=== PATIENT | female | born 1955 | race Caucasian/White ===

== ENCOUNTER → 2017-09-25 15:07 | Outpatient (CLI) | payer BC, SELFPAY ==
[2017-09-25 17:29] LABS: Microalbumin,Random Urine < 5.0 mg/L (NO RANGE EST.)
== END ==
PROVIDERS: Family Provider Family Medicine; PCP Family Medicine; Visit Provider Internal Medicine Nephrology
DX: E11.22 Type 2 diabetes mellitus with diabetic chronic kidney disease (principal); N18.9 Chronic kidney disease, unspecified
CPT/HCPCS: 82043; 82570

== ENCOUNTER → 2018-06-18 17:16 | Outpatient (CLI) | payer BC, SELFPAY ==
--- NOTE | 2018-06-18 17:30 | RAD_ITS ---
STUDY: X-RAY - LUMBAR SPINE REASON FOR EXAM: Female, 62 years old. Injury TECHNIQUE: 3 view(s) of the lumbar spine were obtained. COMPARISON: None FINDINGS: Normal lumbar lordosis. There is no substantial scoliosis. There is a minimal spondylolisthesis at L5-S1. Degenerative changes of the vertebral bodies with spurring at the endplates. Slightly narrow L5-S1 disc space with vacuum phenomena. The soft tissue structures are unremarkable. Calcified aorta. Moderate degenerative changes of the visualized lower thoracic levels. RAD/Lumbar Spine 2 or 3 Views IMPRESSION: Degenerative changes of the lumbar spine. Minimal spinal listhesis at L5-S1 with vacuum phenomenon. Electronically Signed: Tripp Clayton DO at 8:28 EST Tel [phone], Service support ,
== END ==
PROVIDERS: Family Provider Family Medicine; PCP Family Medicine; Referring Provider Anesthesiology Pain Medicine; Visit Provider Anesthesiology Pain Medicine
DX: M54.9 Dorsalgia, unspecified (principal); W19.XXXA Unspecified fall, initial encounter; Y93.9 Activity, unspecified; Y92.9 Unspecified place or not applicable; Y99.9 Unspecified external cause status
CPT/HCPCS: 72100

== ENCOUNTER → 2018-11-03 10:47 | Outpatient (CLI) | payer BC, SELFPAY ==
[2018-11-03 13:25] LABS: PTHIN 114.6 pg/mL (18.4-80.1)
[2018-11-03 13:29] LABS: Microalbumin,Random Urine 18.5 mg/L (NO RANGE EST.); Microalbumin:Creatinine Ratio 19.2 mg/g CRE (<30 mg/g CRE)
== END ==
PROVIDERS: Family Provider Family Medicine; PCP Family Medicine; Visit Provider Internal Medicine Nephrology
DX: E11.22 Type 2 diabetes mellitus with diabetic chronic kidney disease (principal); N18.3 Chronic kidney disease, stage 3 (moderate)
CPT/HCPCS: 36415; 82043; 82570; 83970

== ENCOUNTER → 2019-01-19 15:57 | Outpatient (CLI) | payer BC, SELFPAY ==
--- NOTE | 2019-01-19 16:07 | RAD_ITS ---
HISTORY: PAIN IN HER RIGHT HIP. NO KNOW INJURY. EXAM: AP pelvis and 2 views of the right hip. No comparisons. Findings: Bony alignment is normal. Joint spaces of the hips are mildly narrowed. SI joint arthritis is present. L5-S1 disc disease. Facet arthropathy. No fracture or dislocation. RAD/HIP, UNI W/ Pelvis 2-3 Views IMPRESSION: No fracture dislocation of the right hip. at 0322 Reported and signed by: Wang Horner MD Electronically Signed: Wang Horner MD at 3:21 EDT Tel , Service support ,
== END ==
PROVIDERS: Family Provider Family Medicine; PCP Family Medicine; Referring Provider Anesthesiology Pain Medicine; Visit Provider Anesthesiology Pain Medicine
DX: M25.551 Pain in right hip (principal)
CPT/HCPCS: 73502

== ENCOUNTER → 2020-02-03 09:59 | Outpatient (CLI) | payer MEDICARE, BC, SELFPAY ==
--- NOTE | 2020-02-03 10:10 | RAD_ITS ---
STUDY: X-RAY - LEFT KNEE REASON FOR EXAM: Female, 64 years old. BILAT KNEE PAIN, RT SIDE GREATER THAN LT SIDE. HX OLD FALL TECHNIQUE: 2 view(s) of the knee. COMPARISON: None. FINDINGS: The knee is intact and located. There is moderate decreased joint space and degenerative change in the lateral and medial compartments. Mineralization is normal. BMI severely elevated. Otherwise soft tissues are normal. RAD/Knee 1 or 2 Views IMPRESSION: 1. Moderate degenerative joint disease. 2. Severely elevated BMI. Electronically Signed: Christy Pierce, at 16:50 EDT Tel , Service support ,
--- NOTE | 2020-02-03 10:10 | RAD_ITS ---
STUDY: X-RAY - RIGHT KNEE REASON FOR EXAM: Female, 64 years old. Knee symptomatology TECHNIQUE: view(s) of the knee. COMPARISON: None. FINDINGS: Normal visualized distal femur. Normal visualized proximal tibia and fibula. Normal proximal tibiofibular articulation. There is mild degenerative change in the medial weightbearing compartment.. Normal patellofemoral articulation. BMI is severely elevated. RAD/Knee 1 or 2 Views IMPRESSION: 1. Mild medial compartment degenerative joint disease. 2. Severely elevated BMI. Bariatric specialty referral is advised. Electronically Signed: Christy Pierce, at 16:50 EDT Tel , Service support ,
== END ==
PROVIDERS: PCP Family Medicine; Referring Provider Anesthesiology Pain Medicine; Visit Provider Anesthesiology Pain Medicine
DX: M25.561 Pain in right knee (principal); M25.562 Pain in left knee
CPT/HCPCS: 73560

== ENCOUNTER → 2020-11-27 08:23 | Outpatient (CLI) | payer MEDICARE, BC, SELFPAY ==
[2020-05-22 09:27] VITALS: BMI 52.3
[2020-11-27 09:10] LABS: Protein, Urine (Random) 35.7 mg/dL (<11.9); Protein:Creat Ratio 492 mg/g CRE (0-200)
[2020-11-27 09:27] LABS: Albumin, Serum 3.4 g/dL (3.2-5.0); BUN 36 mg/dL (7-18); BUN/Creat Ratio 32.4 RATIO (10-20); Calcium,Total 9.3 mg/dL (8.5-10.1); Chloride 106 mmol/L (98-107); Creatinine, Serum 1.11 mg/dL (0.55-1.02); EST Glomerular Filtration Rate 52 mL/min (>60); Est Glom Filt Rate - Afr Amer 63 mL/min (>60); Glucose 129 mg/dL (74-106); Phosphorus 3.9 mg/dL (2.5-4.9); Potassium 4.6 mmol/L (3.5-5.1); Sodium Level 138 mmol/L (136-145)
[2020-11-27 09:34] LABS: PTHIN 110.6 pg/mL (18.4-80.1)
== END ==
PROVIDERS: PCP Family Medicine; Referring Provider Internal Medicine Nephrology; Visit Provider Internal Medicine Nephrology
DX: N18.30 Chronic kidney disease, stage 3 unspecified (principal)
CPT/HCPCS: 36415; 80069; 82570; 83970; 84156

== ENCOUNTER → 2021-12-25 | Outpatient (CLI) | payer MEDICARE, BC, SELFPAY ==
[2021-12-25 08:43] LABS: Protein, Urine (Random) 32.4 mg/dL (<11.9); Protein:Creat Ratio 279 mg/g CRE (0-200)
[2021-12-25 09:05] LABS: PTHIN 72.7 pg/mL (18.4-80.1)
[2021-12-25 09:12] LABS: Albumin, Serum 3.8 g/dL (3.2-5.0); BUN 35 mg/dL (7-18); BUN/Creat Ratio 22.4 RATIO (10-20); Calcium,Total 9.3 mg/dL (8.5-10.1); Chloride 100 mmol/L (98-107); Creatinine, Serum 1.56 mg/dL (0.55-1.02); EST Glomerular Filtration Rate 35 mL/min (>60); Est Glom Filt Rate - Afr Amer 43 mL/min (>60); Glucose 130 mg/dL (74-106); Potassium 4.6 mmol/L (3.5-5.1); Sodium Level 136 mmol/L (136-145)
== END | disposition home or self-care (01) ==
LOC: LAB 07:16
PROVIDERS: PCP Family Medicine; Referring Provider Internal Medicine Nephrology; Visit Provider Internal Medicine Nephrology
DX: E11.22 Type 2 diabetes mellitus with diabetic chronic kidney disease (principal); N18.31 Chronic kidney disease, stage 3a
CPT/HCPCS: 36415; 80069; 82570; 83970; 84156

== ENCOUNTER 2023-11-04 11:40 | Emergency (ER) | payer MEDICARE, BC, SELFPAY ==
[2023-11-04] VITALS (24 sets, daily range): BP systolic 126–152; BP diastolic 53–97; PULSE 69–76; RESP 14–22; TEMP 36.4–36.7; O2SAT 91–98
--- NOTE | 2023-11-04 12:05 | ED.RN ---
pt presents today with concerns for bilateral lower extremity redness and edema. on antibiotic for cellulitis but not seeing improvement of symptoms. right foot red and warm to touch. left foot red and cool to touch. this RN attempted to assist patient to bed from wheelchair but patient unable to move feet. called for assistance and 4 other RNs assisted this RN to lift patient into bed. pt extremely weak and completely unable to ambulate. patient severely short of breath and at 78% on RA after being moved into bed from wheelchair. oxygen applied. 97% on 2L HUE. aware
--- NOTE | 2023-11-04 12:12 | EDS_ITS ---
HPI History of Present Illness Chief Complaint: Edema Informant: patient Onset/Context/Timing Onset: Weeks (1) Context: Gradual Onset Timing: Continuous Quality: Swelling Location: Lower extremities Worsened by: Nothing Relieved by: Nothing Narrative Narrative: Patient presents with increased swelling to her lower legs over the past week. Patient states that she has been getting more short of breath with this as well. Patient admits to decreased appetite. Patient denies any chest pain. Patient denies any nausea or vomiting. Family states that she was started on an antibiotic for possible cellulitis recently. Patient denies any fevers but admits to some subjective chills. Family also noted some increased bruising. Family states patient is on a blood thinner. [facility] Medical History HTN (hypertension) Hyperlipidemia Osteoarthritis of knees, bilateral Type 2 diabetes mellitus Home Medications albuterol sulfate 90 mcg/actuation breath activated powder inhaler 2 inh inhalation Q4H PRN 05/22/20 [History Last Taken Unknown] canagliflozin 100 mg tablet (Invokana) 100 mg PO QAM 05/22/20 [History Last Taken Unknown] dexlansoprazole 60 mg capsule,biphase delayed release (Dexilant) 60 mg PO DAILY 05/22/20 [History Last Taken Unknown] exenatide 10 mcg/dose(250 mcg/mL)2.4 mL subcutaneous pen injector (Tommyetta) 10 mcg subcut BID 05/22/20 [History Last Taken Unknown] fexofenadine 180 mg tablet (Ani Allergy) 180 mg PO DAILY 05/22/20 [History Last Taken Unknown] lisinopril 20 mg-hydrochlorothiazide 12.5 mg tablet 1 tab PO DAILY 05/22/20 [History Last Taken Unknown] mometasone 220 mcg/actuation(120 doses)breath activated powder inhaler 1 inh inhalation BID 05/22/20 [History Last Taken Unknown] ofloxacin 0.3 % eye drops See Rx Instructions ophthalmic (eye) .COMPLEX 05/22/20 [History Last Taken Unknown] pregabalin 100 mg capsule (Lyrica) 100 mg PO QHS 05/22/20 [History Last Taken Unknown] sertraline 25 mg tablet 25 mg PO DAILY 05/22/20 [History Last Taken Unknown] simvastatin 40 mg tablet 40 mg PO DAILY 05/22/20 [History Last Taken Unknown] verapamil 200 mg capsule 24hr pellet CT,ext.release 200 mg PO QHS 05/22/20 [History Last Taken Unknown] dapagliflozin propanediol 5 mg tablet (Farxiga) 5 mg PO DAILY 02/27/22 [History Last Taken Unknown] docusate sodium 100 mg capsule 100 mg PO DAILY 02/27/22 [History Last Taken Unknown] prednisone 50 mg tablet 100 mg PO BID 04/16/23 [History Last Taken Unknown] furosemide 20 mg tablet (Lasix) 20 mg PO DAILY #30 tabs 11/04/23 [Rx Last Taken Unknown] potassium chloride 10 mEq capsule,extended release 10 meq PO DAILY #30 caps 11/04/23 [Rx Last Taken Unknown] Allergy/AdvReac Type Severity Reaction Status Date / Time grass pollen Allergy Other Verified 11/04/23 11:43 house dust Allergy Unknown Verified 11/04/23 11:43 mold Allergy Other Verified 11/04/23 11:43 Family History Grandmother Myocardial infarction Hypertension CVA (cerebral vascular accident) Grandfather Myocardial infarction CVA (cerebral vascular accident) Hypertension Mother Myocardial infarction CVA (cerebral vascular accident) Hypertension Father CVA (cerebral vascular accident) Myocardial infarction Hypertension Surgical History H/O sinus surgery H/O: hysterectomy History of tonsillectomy Hx of tubal ligation Social History household members: spouse housing: house Smoking Status: Former smoker alcohol intake: former substance use type: does not use what type of physical activity do you participate in: none do you feel safe at home: Yes ROS ROS ED Constitutional Constitutional ED: Reports chills and subjective; Denies fever(s) Eyes Eyes: Denies blurry vision or change in vision ENT ENT ED: Denies rhinorrhea or sore throat Cardiovascular Cardiovascular: Denies chest pain or palpitations Respiratory/Chest Respiratory/Chest: Reports dyspnea; Denies cough Gastrointestinal Gastrointestinal: Denies nausea or vomiting Genitourinary Genitourinary ED: Denies dysuria or hematuria Musculoskeletal Musculoskeletal: Reports back pain; Denies neck pain Integumentary Denies abscess or rash Neurologic Neurologic: Denies headache(s) or weakness Hematologic/Lymphatic Hematologic/Lymphatic: Reports easy bruising Allergic/Immunologic Allergic/Immunologic ED: Denies mouth swelling or urticaria EXAM Physical Exam Const Vital Signs: 11/04/23 11:41 11/04/23 11:43 11/04/23 11:43 Temperature 97.5 F L 97.5 F L 97.5 F L Temperature Source Temporal Temporal Temporal Pulse Rate 74 74 74 Respiratory Rate 15 15 15 Respiratory Effort Respiratory Pattern Blood Pressure 147/63 H 147/63 H 147/63 H Blood Pressure Mean 91 91 91 Pulse Ox 91 91 91 Oxygen Delivery Method Room Air Room Air Room Air Oxygen Flow Rate (L/min) 11/04/23 12:04 11/04/23 12:41 11/04/23 12:45 Temperature 197.2 F H Temperature Source Temporal Pulse Rate 71 Respiratory Rate 18 Respiratory Effort Short of Breath Respiratory Pattern Tachypnea Blood Pressure 128/61 H Blood Pressure Mean 83 Pulse Ox 97 97 Oxygen Delivery Method Nasal Cannula Nasal Cannula Oxygen Flow Rate (L/min) 2 11/04/23 12:12 11/04/23 12:20 11/04/23 12:30 Temperature Temperature Source Pulse Rate 71 71 73 Respiratory Rate 21 H 16 18 Respiratory Effort Respiratory Pattern Blood Pressure 133/53 H Blood Pressure Mean 77 Pulse Ox 98 97 96 Oxygen Delivery Method Oxygen Flow Rate (L/min) 11/04/23 12:40 11/04/23 12:45 11/04/23 12:50 Temperature Temperature Source Pulse Rate 71 70 75 Respiratory Rate 19 H 20 H 22 H Respiratory Effort Respiratory Pattern Blood Pressure 128/61 H Blood Pressure Mean 82 Pulse Ox 97 98 96 Oxygen Delivery Method Oxygen Flow Rate (L/min) 11/04/23 13:00 11/04/23 13:30 11/04/23 13:40 Temperature Temperature Source Pulse Rate 74 73 70 Respiratory Rate 17 20 H 20 H Respiratory Effort Respiratory Pattern Blood Pressure 132/97 H 131/55 H Blood Pressure Mean 105 77 Pulse Ox 96 96 Oxygen Delivery Method Oxygen Flow Rate (L/min) 11/04/23 13:45 11/04/23 13:50 11/04/23 14:00 Temperature Temperature Source Pulse Rate 70 71 69 Respiratory Rate 17 21 H 19 H Respiratory Effort Respiratory Pattern Blood Pressure 126/66 H 129/62 H Blood Pressure Mean 84 81 Pulse Ox 95 96 Oxygen Delivery Method Oxygen Flow Rate (L/min) 11/04/23 14:10 11/04/23 14:15 11/04/23 14:20 Temperature Temperature Source Pulse Rate 71 71 70 Respiratory Rate 21 H 22 H 16 Respiratory Effort Respiratory Pattern Blood Pressure 152/65 H Blood Pressure Mean 90 Pulse Ox 95 96 95 Oxygen Delivery Method Oxygen Flow Rate (L/min) 11/04/23 14:30 11/04/23 14:40 11/04/23 14:45 Temperature Temperature Source Pulse Rate 71 71 71 Respiratory Rate 20 H 20 H 20 H Respiratory Effort Respiratory Pattern Blood Pressure 151/68 H 144/73 H Blood Pressure Mean 90 93 Pulse Ox 95 96 Oxygen Delivery Method Oxygen Flow Rate (L/min) 11/04/23 14:50 11/04/23 15:00 Temperature Temperature Source Pulse Rate 74 74 Respiratory Rate 21 H 22 H Respiratory Effort Respiratory Pattern Blood Pressure 147/64 H Blood Pressure Mean 87 Pulse Ox 96 94 Oxygen Delivery Method Oxygen Flow Rate (L/min) Positive well nourished and well developed General Appearance ED: well developed and NAD HEENT Reports moist mucous membranes Neck supple and no JVD Resp normal respiratory effort Auscultation: diminished lung sounds bilateral lower Cardio regular rate and regular rhythm GI non-tender and non-distended Palpation: soft Extremity General Extremety ED: Yes edema General Extremity: edema Neuro oriented x3, CN's II-XII intact bilaterally and no sensory deficits noted Sensorium / Orientation: alert Motor Exam: strength 5/5 throughout Psych mental status grossly normal MDM MDM MDM Narrative Medical decision making narrative: Differential diagnosis includes cardiac dysrhythmia, cardiac ischemia, congestive heart failure, chronic kidney disease, electrolyte abnormality, coagulopathy, urinary tract infection, viral infection, and pneumonia. EKG will be obtained to assess for cardiac dysrhythmia and cardiac ischemia. Chest x-ray will be obtained to assess for pneumonia and congestive heart failure. CBC will be obtained to assess for leukocytosis and anemia. Basic metabolic profile will be obtained to assess for electrolyte abnormality and renal function. BNP will be obtained to assess for congestive heart failure. High-sensitivity troponin will be obtained to assess for cardiac ischemia. PT with INR and PTT will be obtained to assess for coagulopathy. COVID-19, influenza, and RSV PCR will be obtained to assess for viral infection. Lab Data Attestation: I reviewed the patient's lab results. Lab results narrative: CBC was reviewed and was within normal limits. Basic metabolic profile was reviewed with. BUN was slightly elevated at 31. The remainder was essentially within normal limits. PT was INR and PTT were reviewed and were within normal limits. High-sensitivity troponin was reviewed and was normal at 10. BNP was reviewed and was normal at 18.6. Urinalysis was reviewed. There is no evidence of urinary tract infection or hematuria. COVID-19 PCR was reviewed and was negative. Influenza PCR was reviewed and was negative for influenza A and influenza B. RSV PCR was reviewed and was negative. Labs: Laboratory Results - last 24 hr 11/04/23 11/04/23 12:15 13:26 WBC 4.6 RBC 4.68 Hgb 13.4 Hct 44.4 MCV 94.9 MCH 28.6 MCHC 30.2 L RDW Std Deviation 47.7 H RDW Coeff of Livan 13.8 Plt Count 159 MPV 12.0 Immature Gran % (Auto) 0.200 Neut % (Auto) 57.9 Lymph % (Auto) 32.5 [place] % (Auto) 8.4 Eos % (Auto) 0.6 Baso % (Auto) 0.4 Absolute Neuts (auto) 2.7 Absolute Lymphs (auto) 1.50 Nucleated RBC % 0 PT 13.0 INR 1.0 APTT 25.6 Sodium 145 Potassium 3.8 Chloride 107 Carbon Dioxide 33.0 H Anion Gap 5 BUN 31 H Creatinine 0.89 Est GFR (MDRD) Af Amer 81 Est GFR (MDRD) Non-Af 67 BUN/Creatinine Ratio 34.8 H Glucose 108 H Calcium 9.6 Troponin I High Sens 10 B-Natriuretic Peptide 18.6 Urine Color Yellow Urine Clarity Clear Urine pH 6.0 Ur Specific [place] 1.015 Urine Protein Negative Urine Glucose (UA) 1000 H Urine Ketones Negative Urine Occult Blood Negative Urine Nitrite Negative Urine Bilirubin Negative Urine Urobilinogen Normal Ur Leukocyte Esterase Negative Urine RBC 0 SEEN Urine WBC 0 SEEN Ur Squamous Epith Cells 0 SEEN Urine Bacteria 0 SEEN Urine Mucus 0 SEEN Radiography Chest X-Ray - ED: 1 View, Read by ED Physician and Read by Radiologist Diagnostic Testing: Clinical Impression(s) from Imaging Studies Chest X-Ray 11/04/23 12:55 IMPRESSION: Mild degree of CHF with some mild bibasilar atelectasis and blunting of the left costophrenic angle. Electronically Signed: Micheal Machado MD at 14:15 EDT , Portable 1 view chest x-ray was obtained. On my independent interpretation, lung ovalle show mild vascular congestion. There is normal cardiac silhouette. Bony thorax is normal. There is no acute process noted. Radiologist also interpreted the x-ray and agrees. EKG Initial EKG: Attestation: I personally reviewed and interpreted this EKG as follows: Interpretation: Sinus Rhythm (69) and No Acute Injury Pattern Comments: EKG was obtained. On my independent interpretation, it showed a normal sinus rhythm with a rate of 69. DE interval, QRS interval, and QTc intervals were all normal. [place] was normal. There are no acute ST or T wave changes. Prior EKG tracings: not available for review Prior: No Prior Treatment and Re-Evaluation :: Patient was advised of her findings. Patient is resting comfortably. Case was discussed with Dr. Jack, patient's primary care physician. She recommended starting the patient on Lasix 20 mg daily. She also recommended adding potassium supplements. She will order repeat blood work in 1 week. Patient was instructed to have her blood rechecked in 1 week. Patient was instructed to follow-up with her primary care physician in 2 weeks. Patient was instructed to return if worse in any way. Patient and family understood and were agreeable with the plan. All questions were answered. Discharge Plan Triage Chief Complaint: Edema ED Provider: Kameron Louise Dx/Rx/DC Orders Clinical Impression: Peripheral edema, Hx of chronic kidney disease Instructions: ED Peripheral Edema, Bilateral Prescriptions: New furosemide [Lasix] 20 mg tablet 20 mg PO DAILY Qty: 30 0RF potassium chloride 10 mEq capsule, extended release 10 meq PO DAILY Qty: 30 0RF No Action ofloxacin 0.3 % drops See Rx Instructions OPHTHALMIC .COMPLEX Rx Instructions: put 1-2 drps into affected eye(s) every 2-4 h x 2 days, then 1-2 drps 4 times/day days 3-7 ophthalmic (eye) albuterol sulfate 90 mcg/actuation aerosol powdr breath activated 2 inh INHALATION Q4H PRN sertraline 25 mg tablet 25 mg PO DAILY pregabalin [Lyrica] 100 mg capsule 100 mg PO QHS fexofenadine [Ani Allergy] 180 mg tablet 180 mg PO DAILY Invokana 100 mg tablet 100 mg PO QAM lisinopril-hydrochlorothiazide 20-12.5 mg tablet 1 tab PO DAILY simvastatin 40 mg tablet 40 mg PO DAILY verapamil 200 mg capsule, [address] 200 mg PO QHS Dexilant 60 mg capsule,biphase delayed releas 60 mg PO DAILY mometasone 220 mcg/ actuation (120) aerosol powdr breath activated 1 inh INHALATION BID exenatide 10 mcg/dose(250 mcg/mL) 2.4 mL pen injector 10 mcg SC BID Farxiga 5 mg tablet 5 mg PO DAILY docusate sodium 100 mg capsule 100 mg PO DAILY prednisone 50 mg tablet 100 mg PO BID Primary Care Provider: Criss Jack Referrals: Criss Jack DO [Primary Care Provider] - 1-2 Weeks Activity Restrictions/Additional Instructions: You will need to get repeat blood work in 1 week. Your primary care physician will order this. Disposition Disposition: Home, Self Care
--- NOTE | 2023-11-04 12:40 | EKG12_ITS ---
Test Reason : GENERAL/EDEMA Blood Pressure : / mmHG Vent. Rate : 069 BPM Atrial Rate : 069 BPM P-R Int : 162 ms QRS Dur : 092 ms QT Int : 366 ms P-R-T Axes : 073 -11 026 degrees QTc Int : 392 ms Normal sinus rhythm Inferior infarct , age undetermined Poor R wave progression Abnormal ECG Confirmed by Michael Carballo ([id number]), food expeditor SANDY GIMENEZ ([id number]) on 11/06/2023 10:59:24 AM Referred By: Confirmed By:Michael Carballo
[2023-11-04 12:51] LABS: Absolute Neutrophil Count 2.7 X10^3/uL (2.0-7.7); Basophil# 0.02 X10^3/uL; Basophil% 0.4 % (0-1); Eosinophil# 0.03 X10^3/uL; Eosinophils% 0.6 % (0-5); Hematocrit 44.4 % (37-47); Hemoglobin 13.4 g/dL (12.0-15.0); Lymphocyte % 32.5 % (19-41); Mean Corp Hgb Conc 30.2 g/dL (32-36); Mean Corpuscular Hgb 28.6 pg (27.0-32.0); Mean Corpuscular Volume 94.9 fL (81-99); Monocyte# 0.39 X10^3/uL; Monocyte% 8.4 % (0-10); NRBC Flagged by Analyzer 0 % (0-5); Neutrophil # 2.67 X10^3/uL (2.7-7.7); Neutrophil % 57.9 % (47-70); Platelet Count 159 K/mm3 (150-450); RBC Distribution Width CV 13.8 % (11.6-14.6); RBC Distribution Width SD 47.7 fl (35.1-43.9); Red Blood Count 4.68 M/mm3 (4.2-5.4); White Blood Count 4.6 K/mm3 (4.4-11.0)
--- NOTE | 2023-11-04 12:55 | RAD_ITS ---
STUDY: X-RAY CHEST REASON FOR EXAM: Female, 68 years old. Dyspnea TECHNIQUE: Single AP portable view of the chest. COMPARISON: Comparison is made with prior examination is April 18, 2004. FINDINGS: EKG electrodes are seen. Limited inspiratory effort. Vascular congestion and mild degree of CHF with mild bibasilar atelectasis. Blunting of the left costophrenic angle. Normal size heart. Normal mediastinum and gaby. Normal visualized pulmonary arteries. Normal visualized aortic arch and descending thoracic aorta. Normal visualized thoracic spine. There is degenerative osteoarthritis of the bilateral shoulders. There is no demonstrated abnormality of the visualized soft tissue structures of the upper abdomen. RAD/Chest 1 View (Portable) IMPRESSION: Mild degree of CHF with some mild bibasilar atelectasis and blunting of the left costophrenic angle. Electronically Signed: Micheal Machado MD at 14:15 EDT ,
[2023-11-04 13:00] LABS: Partial Thromboplast Time 25.6 Seconds (24.1-36.2)
[2023-11-04 13:08] LABS: Anion Gap 5 (5-15); BUN 31 mg/dL (7-18); BUN/Creat Ratio 34.8 RATIO (10-20); Calcium,Total 9.6 mg/dL (8.5-10.1); Chloride 107 mmol/L (98-107); Creatinine, Serum 0.89 mg/dL (0.55-1.02); EST Glomerular Filtration Rate 67 mL/min (>60); Est Glom Filt Rate - Afr Amer 81 mL/min (>60); Glucose 108 mg/dL (74-106); Potassium 3.8 mmol/L (3.5-5.1); Sodium Level 145 mmol/L (136-145); Troponin-I HS 10 pg/mL (3.0-54.0)
[2023-11-04 13:09] LABS: BNP,B-Type NATRIURETIC PEPTIDE 18.6 pg/mL (0-100)
[2023-11-04 13:30] LABS: Bacteria 0 SEEN /hpf (None Seen); Mucous, Urine 0 SEEN /hpf (<or=2+); Red Blood Cells-Urine 0 SEEN /hpf (0-5); Squamous Epithelial Cells - UA 0 SEEN /hpf (5-10); White Blood Cells 0 SEEN /hpf (0-5)
[2023-11-04 13:31] LABS: Color, Urine Yellow (Yellow); Glucose, Dipstick 1000 mg/dl (Normal); Ketone-Dipstick Negative (Negative); Leukocyte Esterase-Dipstick Negative /ul (Negative); Nitrite-Dipstick Negative (Negative); Occult Blood-Urine Negative /ul (Negative); Protein-Dipstick Negative (Negative); Specific Gravity, Urine 1.015 (1.002-1.030); Urine Bilirubin Dipstick Negative (Negative); Urine Clarity Clear (Clear); Urine Urobilinogen Normal (Normal)
== END 2023-11-04 16:50 | disposition home or self-care (01) ==
PROVIDERS: Emergency Provider Emergency Medicine; PCP Family Medicine; Visit Provider Emergency Medicine
DX: R60.0 Localized edema (principal); E11.22 Type 2 diabetes mellitus with diabetic chronic kidney disease; I13.10 Hypertensive heart and chronic kidney disease without heart failure, with stage 1 through stage 4 chronic kidney disease, or unspecified chronic kidney disease; R06.00 Dyspnea, unspecified; N18.9 Chronic kidney disease, unspecified; M54.9 Dorsalgia, unspecified; E78.5 Hyperlipidemia, unspecified; Z11.52 Encounter for screening for COVID-19; Z79.85 Long-term (current) use of injectable non-insulin antidiabetic drugs; Z79.899 Other long term (current) drug therapy; Z87.891 Personal history of nicotine dependence
CPT/HCPCS: 71045; 80048; 81001; 83880; 84484; 85025; 85610; 85730; 87631; 93005; 99285; P9612; A4216